=== PATIENT | male | born 1990 | race Hispanic/Latino ===

== ENCOUNTER 2017-02-19 08:25 | Emergency (ER) | payer OTHER ==
[~2017-02-19] VITALS: Ht 172.7 cm; Wt 80.0 kg
[~2017-02-19 08:25] MED LIST: MOTRIN800 MG PO
[2017-02-19 09:12] LABS: HEMATOCRIT 48.7 % (39.0-50.0); HEMOGLOBIN 17.1 g/dl (14.0-18.0); IMMATURE GRANULOCYTES 0.4 % (0.0-1.0); MEAN CELL VOLUME 88.9 fL CALC (80.0-100.0); MEAN CORPUSCULAR HGB 31.2 pG CALC (26.0-32.0); MEAN CORPUSCULAR HGB CONC 35.1 g/L CALC (32.0-36.0); NEUT# 11.62 thou/uL (1.82-7.42); RED BLOOD COUNT 5.48 mill/uL (4.70-6.10); RED CELL DISTRI WIDTH 12.3 % (11.5-15.5)
[2017-02-19 09:29] LABS: ALBUMIN 4.7 g/dL (3.2-5.0); ALKALINE PHOSPHATASE 90 u/l (38-126); AMYLASE 61 u/l (30-110); ANION GAP 15 (6-22 (CALC)); BILIRUBIN, TOTAL 1.3 mg/dL (0.0-1.4); BUN 12 mg/dL (9-20); BUN/CREATININE RATIO 14 (12-20 (CALC)); CALCIUM 9.3 mg/dL (8.4-10.2); CARBON DIOXIDE 28 mmol/l (22-30); CHLORIDE 103 mmol/l (95-108); CREATININE 0.8 mg/dL (0.7-1.3); GFR > 60 ML/MIN (>=60 (CALC)); GFR FOR AFR.AMER. > 60 ML/MIN (>=60 (CALC)); GLUCOSE 94 mg/dL (75-110); LIPASE 70 u/l (23-300); POTASSIUM 4.2 mmol/l (3.5-5.1); SGOT/AST 29 u/l (17-59); SGPT/ALT 39 u/l (21-72); SODIUM 142 mmol/l (137-146); TOTAL PROTEIN 7.9 g/dL (6.3-8.2)
[2017-02-19 10:17] LABS: C. DIFFICILE TOXIN A&B NEGATIVE (NEGATIVE)
[2017-02-19] MEDS ORDERED: IMODIUM2 MG PO (10:45)
[2017-02-19 12:19] VITALS: BP 130/70
--- NOTE | 2017-02-21 08:37 | NUR ---
PHARMACY MEDICATION FOLLOW-UP Patient was seen in ED on 02/19/17 Cultures were reviewed from: STOOL Patient was discharged with Rx for:NO ABX C&S report came back with No Growth PLAN: Recommended: NO CHANGE Comment: RECURRENT DIARRHEA, RX IMMODIUM, PT TO SEE SPECIALIST
== END 2017-02-19 12:19 | disposition home or self-care (01) | DRG 392 ==
LOC: ED 08:25
PROVIDERS: Emergency Medicine
DX: R19.7 Diarrhea, unspecified (principal)